=== PATIENT | male | born 1980 | race Caucasian/White ===

== ENCOUNTER 2023-07-02 08:26 | Emergency (ER) | payer OTHER ==
[2023-07-02] MEDS: Acetaminophen/HYDROcodone 325-10 MG Tab PO ONE (11:10)
[2023-07-02] MEDS: Lidocaine 1% 30 ML SDV INJECT ONE (11:22)
[2023-07-02] MEDS: Lidocaine 1% with EPINEPHrine 1:100,000 20 ML MDV INFILT ONE (11:22)
[2023-07-02] MEDS: Lidocaine 1% 10 ML MDV INJECT ONE (12:38)
== END 2023-07-02 11:45 | disposition home or self-care (01) ==
LOC: VM.ED 08:26
DX: S61.212A Laceration without foreign body of right middle finger without damage to nail, initial encounter (principal); S01.01XA Laceration without foreign body of scalp, initial encounter; S80.02XA Contusion of left knee, initial encounter; V49.40XA Driver injured in collision with unspecified motor vehicles in traffic accident, initial encounter; Y92.411 Interstate highway as the place of occurrence of the external cause
CPT/HCPCS: 12005; 73562-LT; 73630-RT; 99284; A9270-GY; J3490